=== PATIENT | male | born 2000 | race Caucasian/White ===

== ENCOUNTER 2024-02-25 05:10 | Emergency (ER) | payer OTHER, SELFPAY ==
[2024-02-25 05:13] VITALS: BP 170/99; PULSE 82; RESP 16; TEMP 36.8; O2SAT 98; BMI 22.9
--- NOTE | 2024-02-25 05:26 | EDS_ITS ---
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 The pain came back, he had bright red blood per rectum then without stool. The pain is gone now. He has had 2 bouts of diarrhea. No suspicious food intake. No travel out of the region over the country recently. No recent antibiotics. No anal pain or discomfort or history of hemorrhoids that he knows of. Never had this happen before no history of GI issues that he knows of. No injuries that he knows of. Had a subjective fever earlier. PFSH PFSH Medical History no medical history no medical history Home Medications dicyclomine 10 mg capsule 20 mg (2 x 10 mg) PO Q6H PRN PRN abdominal pain #20 CAPSULES 02/25/24 [Rx Last Taken Unknown] ondansetron 8 mg disintegrating tablet 8 mg PO Q8H PRN nausea and vomiting #20 tabs 02/25/24 [Rx Last Taken Unknown] Allergy/AdvReac Type Severity Reaction Status Date / Time No Known Allergies Allergy Verified 02/25/24 05:32 Social History Smoking Status: Never smoker ROS ROS ED Constitutional Constitutional ED: Reports fever(s) and subjective; Denies chills Eyes Eyes: Denies change in vision or diplopia ENT ENT ED: Denies rhinorrhea or sore throat Cardiovascular Cardiovascular: Denies chest pain, lightheadedness, palpitations or syncope Respiratory/Chest Respiratory/Chest: Denies cough or dyspnea Gastrointestinal Gastrointestinal: Reports abdominal pain, diarrhea, hematochezia and nausea; Denies hemorrhoids, melena or vomiting Genitourinary Genitourinary ED: Denies dysuria or hematuria Musculoskeletal Musculoskeletal: Denies back pain or neck pain Integumentary Denies abscess or rash Neurologic Neurologic: Denies headache(s), paresthesias or weakness Psychiatric Psychiatric: Denies anxiety or suicidal thoughts EXAM Physical Exam Const Vital Signs: 02/25/24 05:13 Temperature 98.2 F Temperature Source Oral Pulse Rate 82 Respiratory Rate 16 Blood Pressure 170/99 H Blood Pressure Mean 122 Pulse Ox 98 Oxygen Delivery Method Room Air Positive well nourished and well developed General Appearance ED: well developed and NAD HEENT Reports moist mucous membranes normocephalic and atraumatic Eyes PERRL and EOMs intact bilaterally Neck full ROM and supple Resp normal respiratory effort and clear to auscultation bilaterally Cardio regular rate, regular rhythm and no murmurs GI non-tender and non-distended GI Narrative: Rectal benign no tenderness, no visible abscess or external hemorrhoid no active bleeding Auscultation: normoactive bowel sounds Palpation: soft Back/Spine no CVA tenderness General Back: other FROM Extremity normal to inspection General Extremety ED: Negative for edema, pulses abnormal or tenderness General Extremity: Negative for edema or pulses abnormal Neuro oriented x3, CN's II-XII intact bilaterally and no sensory deficits noted Sensorium / Orientation: awake and alert Motor Exam: strength 5/5 throughout Psych Mood & Affect: anxious Skin no rashes or lesions noted and no wounds MDM MDM MDM Narrative Medical decision making narrative: While giving the patient some IV fluids and Zofran, obtain some labs which were all normal including liver enzymes. While observing him, he did well, I tried a couple times to have diarrhea and he did want to have small amount of bloody diarrhea. I sent this for enteric bacterial panel to screen for bacterial infections which I am at a low suspicion for since he has no risk factors and no leukocytosis. His abdomen is very benign and nontender, flat. I do not think he needs advanced imaging right now I do not think that is going to differentiate 1 possibility here from another. Probably has some type of colitis the question is whether this is infectious, inflammatory, or none of the above and this is just an internal hemorrhoid. All of the above are in the realm of possibility, given his age and health less likely to be a diverticular bleed, mesenteric ischemia since he does not have any pain right now, or anything else dangerous so I am comfortable with him going home, staff can contact him if the panel is positive for infectious agent but I would not recommend antibiotics at this time empirically. Supportive care advised along with fluids and outpatient follow-up. Given prescriptions to use as needed for dicyclomine and Zofran, and instructions for bland diet. Lab Data Attestation: I reviewed the patient's lab results. Labs: Laboratory Results - last 24 hr 02/25/24 05:25 WBC 6.8 RBC 5.16 Hgb 15.9 Hct 45.1 MCV 87.4 MCH 30.8 MCHC 35.3 RDW Std Deviation 36.3 RDW Coeff of Sb 11.3 L Plt Count 175 MPV 10.2 Immature Gran % (Auto) 0.100 Neut % (Auto) 46.1 L Lymph % (Auto) 35.8 [place] % (Auto) 16.7 H Eos % (Auto) 0.9 Baso % (Auto) 0.4 Absolute Neuts (auto) 3.1 Absolute Lymphs (auto) 2.42 Nucleated RBC % 0 Sodium 138 Potassium 3.4 L Chloride 103 Carbon Dioxide 30.0 Anion Gap 5 BUN 11 Creatinine 1.09 Estim Creat Clear Calc 125.25 Est GFR (MDRD) Af Amer 108 Est GFR (MDRD) Non-Af 89 BUN/Creatinine Ratio 10.1 Glucose 96 Calcium 9.0 Total Bilirubin 0.70 AST 17 ALT 20 Alkaline Phosphatase 61 Total Protein 7.5 Albumin 4.1 Globulin 3.4 Albumin/Globulin Ratio 1.2 Discharge Plan Triage Chief Complaint: GI Bleed ED Provider: Abilio Johnson Dx/Rx/DC Orders Clinical Impression: Acute hemorrhagic colitis Instructions: GI Bleeding Causes and Tests, ED Understanding Colitis, ED Diet, Crisp (Adult) Prescriptions: New dicyclomine 10 mg capsule 20 mg PO Q6H PRN PRN (Reason: abdominal pain) Qty: 20 0RF ondansetron 8 mg tablet,disintegrating 8 mg PO Q8H PRN (Reason: nausea and vomiting) Qty: 20 0RF Primary Care Provider: Care Physician,No Primary Referrals: Migdalia Burris MD [Med Staff - [employer]] - 1 Week if not improving [facility] [Group of Physicians] - 1 Week if not improving Disposition Disposition: Home, Self Care
[2024-02-25] MEDS: Ondansetron 4 MG/2 ML Vial IV (05:36)
[2024-02-25 05:40] LABS: Absolute Lymphocyte Count 2.42 X10^3/uL (0.83-4.51); Absolute Neutrophil Count 3.1 X10^3/uL (2.0-7.7); Basophil# 0.03 X10^3/uL; Basophil% 0.4 % (0-1); Eosinophil# 0.06 X10^3/uL; Eosinophils% 0.9 % (0-5); Hematocrit 45.1 % (40-54); Hemoglobin 15.9 g/dL (13.0-16.5); Lymphocyte # 2.42 X10^3/ul (0.83-4.51); Lymphocyte % 35.8 % (19-41); Mean Corp Hgb Conc 35.3 g/dL (32-36); Mean Corpuscular Hgb 30.8 pg (27.0-32.0); Mean Corpuscular Volume 87.4 fL (80-94); Mean Platelet Vol. 10.2 fl (6.2-12.0); Monocyte# 1.13 X10^3/uL; Monocyte% 16.7 % (0-10); NRBC Flagged by Analyzer 0 % (0-5); Neutrophil # 3.11 X10^3/uL (2.7-7.7); Neutrophil % 46.1 % (47-70); Platelet Count 175 K/mm3 (150-450); RBC Distribution Width CV 11.3 % (11.6-14.6); RBC Distribution Width SD 36.3 fl (35.1-43.9); Red Blood Count 5.16 M/mm3 (4.6-6.2); White Blood Count 6.8 K/mm3 (4.4-11.0)
[2024-02-25] MEDS: 0.9% Normal Saline (500mL Bag) 500 ML 999 ML IV (05:40)
[2024-02-25 05:55] LABS: ALB/GLOB Ratio 1.2 RATIO (0.9-2.4); AST(SGOT) 17 U/L (15-37); Alanine Aminotransfer ALT/SGPT 20 U/L (16-61); Albumin, Serum 4.1 g/dL (3.2-5.0); Alkaline Phosphatase 61 U/L (45-117); Anion Gap 5 (5-15); BUN 11 mg/dL (7-18); BUN/Creat Ratio 10.1 RATIO (10-20); Chloride 103 mmol/L (98-107); Creatinine, Serum 1.09 mg/dL (0.70-1.30); EST Glomerular Filtration Rate 89 mL/min (>60); Est Glom Filt Rate - Afr Amer 108 mL/min (>60); Estimated Creatinine Clearance 125.25 ml/min; Globulin 3.4 g/dL (2.2-4.2); Glucose 96 mg/dL (74-106); Potassium 3.4 mmol/L (3.5-5.1); Protein, Total 7.5 g/dL (6.4-8.2); Sodium Level 138 mmol/L (136-145)
[2024-02-25 06:56] VITALS: BP 153/81; PULSE 68; RESP 18; TEMP 36.7; O2SAT 98
== END 2024-02-25 06:57 | disposition home or self-care (01) ==
PROVIDERS: Emergency Provider Emergency Medicine; Visit Provider Emergency Medicine
DX: K52.9 Noninfective gastroenteritis and colitis, unspecified (principal)
CPT/HCPCS: 96374; 80053; 85025; 87506; 99282; J7040; A4216; J2405